=== PATIENT | male | born 1980 | race Caucasian/White ===

== ENCOUNTER 2021-01-06 20:56 | Inpatient (IN) ==
[2021-01-06] MEDS ORDERED: Dexamethasone Sodium Phos/PF 10 MG/ML VIAL IVP ONE (21:58)
[2021-01-06] MEDS ORDERED: Acetaminophen 325 MG TABLET PO ONE (22:01)
[2021-01-06] MEDS ORDERED: Ondansetron 4 MG/2 ML VIAL IVP ONE (22:08)
[2021-01-06 22:42] LABS: Basophils # 0.1 K/mcL (0.0-0.2); Basophils % 0.5 %; Eosinophils # 0.1 K/mcL (0.0-0.6); Eosinophils % 0.8 %; Hematocrit 44.8 % (37.5-50.1); Hemoglobin 14.6 g/dL (12.9-16.9); Immature Granulocytes % 0.9 % (0-4); Lymphocytes # 1.4 K/mcL (0.6-4.6); Lymphocytes % 12.8 %; Mean Corpuscular HGB Conc 32.6 g/dL (31.6-35.5); Mean Corpuscular Hemoglobin 29.2 pg (28.0-33.3); Mean Corpuscular Volume 89.6 fL (83.0-100.0); Mean Platelet Volume 9.6 fL (9.4-12.4); Monocytes # 0.8 K/mcL (0.0-1.3); Nucleated Red Blood Cells 0.2 /100 WBC (0); Platelet Count 394 K/mcL (140-400); Red Cell Distribution Width 13.1 % (11.5-14.5); White Blood Count 10.7 K/mcL (4.3-11.1)
[2021-01-06 22:45] LABS: Neutrophils # 8.4 K/mcL (1.6-8.9)
[2021-01-06 22:49] LABS: INR 1.5; Prothrombin Time 17.3 Seconds (9.4-12.1)
[2021-01-06 22:52] LABS: Activated Partial Thrombo Time 29.6 Seconds (26.0-36.0)
[2021-01-06] MEDS ORDERED: Isovue-370 500 ML BOTTLE IVP ONE (22:55)
[2021-01-06 22:57] LABS: VBG HCO3 27 mEq/L (21-27); VBG PCO2 40 mmHg (41-51); VBG PH 7.43 pH Units (7.32-7.42); VBG PO2 60 mmHg (25-50)
[2021-01-06 23:03] LABS: Platelet Estimate Normal (Normal); Reactive Lymphocytes Present (Not Present)
[2021-01-06 23:04] LABS: Alanine Aminotransferase 19 Units/L (7-52); Albumin 3.7 g/dL (3.5-5.7); Albumin/Globulin Ratio 0.8 (1.1-2.2); Alkaline Phosphatase 60 Units/L (34-104); Aspartate Amino Transferase 25 Units/L (13-39); BUN/Creatinine Ratio 17 (6-26); Bilirubin,Direct 0.3 mg/dL (0.0-0.2); Bilirubin,Indirect 0.6 mg/dL (0.0-1.0); Bilirubin,Total 0.9 mg/dL (0.3-1.0); Blood Urea Nitrogen 14 mg/dL (6-20); C-Reactive Protein 215 mg/L (Less than 10); Calcium 9.2 mg/dL (8.6-10.3); Carbon Dioxide 23 mEq/L (23-29); Chloride 98 mEq/L (98-107); Globulin 4.4 g/dL (2.4-3.5); Glucose 106 mg/dL (70-105); Magnesium 2.2 mg/dL (1.6-2.6); Osmolality,Calculated 281 (280-300); Phosphorous 2.7 mg/dL (2.7-4.5); Potassium 3.9 mEq/L (3.5-5.1); Sodium 135 mEq/L (136-145); Total Protein 8.1 g/dL (6.4-8.9); Troponin I < 0.03 ng/mL (< 0.04); eGFR For African Americans > 60 (> 60); eGFR For Non-African Americans > 60 (> 60)
[2021-01-06 23:06] LABS: Bacteria,Urine Few per hpf (None-Few); Bilirubin,Urine Small (Negative); Blood,Urine Trace (Negative); Clarity,Urine Clear (Clear); Color,Urine Yellow (Yellow); Glucose,Urine (UA) Normal (Normal); Granular Casts,Urine Few per lpf (None Seen); Hyaline Casts,Urine Few per lpf (None Seen); Ketones,Urine 80 mg/dL (Negative); Leukocyte Esterase,Urine Negative (Negative); Mucus,Urine Few per lpf (None-Few); Nitrite,Urine Negative (Negative); PH,Urine 6.5 pH Units (5.0-8.0); Protein,Urine 200 mg/dL (Neg-Trace); RBC,Urine 0-3 per hpf (0-3); Specific Gravity,Urine > 1.030 (1.010-1.025); Squamous Epithelial Cell,Urine Few per hpf (None-Few); Urobilinogen,Urine >=8.0 mg/dL (Normal)
[2021-01-07 00:23] LABS: Adenovirus Not Detected (Not Detect); Bordetella Pertussis Not Detected (Not Detect); Chlamydophila pneumoniae Not Detected (Not Detect); Coronavirus 229E Not Detected (Not Detect); Coronavirus HKU1 Not Detected (Not Detect); Coronavirus NL63 Not Detected (Not Detect); Coronavirus OC43 Not Detected (Not Detect); Human Metapneumovirus Not Detected (Not Detect); Human Rhinovirus/Enterovirus Not Detected (Not Detect); Influenza A Subtype 2009 H1 Not Detected (Not Detect); Influenza B Not Detected (Not Detect); Mycoplasma pneumoniae Not Detected (Not Detect); Parainfluenza Virus 1 Not Detected (Not Detect); Parainfluenza Virus 2 Not Detected (Not Detect); Parainfluenza Virus 3 Not Detected (Not Detect); Parainfluenza Virus 4 Not Detected (Not Detect); Respiratory Syncytial Virus Not Detected (Not Detect)
[2021-01-07 00:25] LABS: SARS-CoV-2 DETECTED (Not Detect)
[2021-01-07] MEDS ORDERED: Acetaminophen 325 MG TABLET PO PRN (02:32)
[2021-01-07] MEDS ORDERED: Ondansetron 4 MG/2 ML VIAL IVP PRN (02:32)
[2021-01-07] MEDS ORDERED: Naloxone 0.4 MG/ML INJ IVP PRN (02:32)
[2021-01-07 05:16] LABS: Eosinophils % 0.2 %
[2021-01-07 05:18] LABS: Basophils # 0.1 K/mcL (0.0-0.2); Basophils % 0.8 %; Hematocrit 43.8 % (37.5-50.1); Immature Granulocytes % 1.3 % (0-4); Immature Platelets 4.3 % (1.1-6.1); Lymphocytes # 0.9 K/mcL (0.6-4.6); Lymphocytes % 10.6 %; Mean Corpuscular Volume 90.9 fL (83.0-100.0); Mean Platelet Volume 9.7 fL (9.4-12.4); Monocytes # 0.4 K/mcL (0.0-1.3); Monocytes % 4.2 %; Platelet Count 415 K/mcL (140-400); Red Blood Count 4.82 M/mcL (4.19-5.50); Segmented Neutrophils % 82.9 %; White Blood Count 8.4 K/mcL (4.3-11.1)
[2021-01-07 05:33] LABS: Lactate Dehydrogenase 343 Units/L (140-271)
[2021-01-07 05:51] LABS: Ferritin 669 ng/mL (20-250)
[2021-01-07 05:56] LABS: Reactive Lymphocytes Present (Not Present)
[2021-01-07] MEDS: cefTRIAXone 1,000 MG in 0.9 % Sodium Chloride Mini Bag 100 ML IVPB SCH (09:03)
[2021-01-07] MEDS: Azithromycin 500 MG in 0.9 % Sodium Chloride 250 ML IVPB SCH (09:03)
[2021-01-07] MEDS: *HR* Rivaroxaban 10 MG TABLET PO SCH (16:36)
[2021-01-07] MEDS: NALOXONE HCL SL SCH (22:28)
[2021-01-07] MEDS: BUPRENORPHINE HCL SL SCH (22:28)
[2021-01-07] MEDS: Gabapentin 300 MG CAPSULE PO SCH (22:29)
[2021-01-07] MEDS: QUEtiapine Fumarate 100 MG TABLET PO SCH (22:29)
[2021-01-08] MEDS: Gabapentin 300 MG CAPSULE PO SCH ×3 (10:55→20:36)
[2021-01-08] MEDS: cefTRIAXone 1,000 MG in 0.9 % Sodium Chloride Mini Bag 100 ML IVPB SCH (10:55)
[2021-01-08] MEDS: BUPRENORPHINE HCL SL SCH ×2 (10:56→20:37)
[2021-01-08] MEDS: NALOXONE HCL SL SCH ×2 (10:56→20:37)
[2021-01-08] MEDS: Azithromycin 500 MG in 0.9 % Sodium Chloride 250 ML IVPB SCH (11:46)
[2021-01-08] MEDS: *HR* Rivaroxaban 10 MG TABLET PO SCH (16:19)
[2021-01-08] MEDS: *HR* Buprenorphine HCl 2 MG SUBLINGUAL TABLET SL SCH (20:36)
[2021-01-08] MEDS: QUEtiapine Fumarate 100 MG TABLET PO SCH (20:36)
[2021-01-09 06:29] LABS: Basophils % 0.4 %; Eosinophils % 0.1 %; Hematocrit 45.6 % (37.5-50.1); Hemoglobin 14.3 g/dL (12.9-16.9); Immature Granulocytes % 1.1 % (0-4); Lymphocytes # 1.6 K/mcL (0.6-4.6); Lymphocytes % 14.2 %; Mean Corpuscular HGB Conc 31.4 g/dL (31.6-35.5); Mean Corpuscular Hemoglobin 28.7 pg (28.0-33.3); Mean Corpuscular Volume 91.6 fL (83.0-100.0); Mean Platelet Volume 10.1 fL (9.4-12.4); Monocytes # 0.9 K/mcL (0.0-1.3); Monocytes % 8.3 %; Neutrophils # 8.7 K/mcL (1.6-8.9); Platelet Count 507 K/mcL (140-400); Red Blood Count 4.98 M/mcL (4.19-5.50); Red Cell Distribution Width 12.9 % (11.5-14.5); Segmented Neutrophils % 75.9 %; White Blood Count 11.4 K/mcL (4.3-11.1)
[2021-01-09 07:13] LABS: Alanine Aminotransferase 19 Units/L (7-52); Albumin 3.8 g/dL (3.5-5.7); Alkaline Phosphatase 51 Units/L (34-104); Aspartate Amino Transferase 18 Units/L (13-39); BUN/Creatinine Ratio 24 (6-26); Bilirubin,Total 0.6 mg/dL (0.3-1.0); Blood Urea Nitrogen 21 mg/dL (6-20); Calcium 9.4 mg/dL (8.6-10.3); Carbon Dioxide 26 mEq/L (23-29); Chloride 101 mEq/L (98-107); Ferritin 729 ng/mL (20-250); Globulin 3.8 g/dL (2.4-3.5); Glucose 115 mg/dL (70-105); Lactate Dehydrogenase 289 Units/L (140-271); Osmolality,Calculated 292 (280-300); Potassium 4.1 mEq/L (3.5-5.1); Sodium 139 mEq/L (136-145); Total Protein 7.6 g/dL (6.4-8.9); eGFR For African Americans > 60 (> 60); eGFR For Non-African Americans > 60 (> 60)
[2021-01-09] MEDS: cefTRIAXone 1,000 MG in 0.9 % Sodium Chloride Mini Bag 100 ML IVPB SCH (08:44)
[2021-01-09] MEDS: *HR* Buprenorphine HCl 2 MG SUBLINGUAL TABLET SL SCH ×2 (08:45→21:12)
[2021-01-09] MEDS: BUPRENORPHINE HCL SL SCH (08:45)
[2021-01-09] MEDS: Gabapentin 300 MG CAPSULE PO SCH ×3 (08:45→21:12)
[2021-01-09] MEDS: NALOXONE HCL SL SCH (08:45)
[2021-01-09] MEDS: Furosemide 20 MG TABLET PO SCH (08:45)
[2021-01-09] MEDS: Azithromycin 500 MG in 0.9 % Sodium Chloride 250 ML IVPB SCH (09:50)
[2021-01-09] MEDS: *HR* Rivaroxaban 10 MG TABLET PO SCH (17:04)
[2021-01-09] MEDS: QUEtiapine Fumarate 100 MG TABLET PO SCH (21:12)
[2021-01-10] MEDS: Gabapentin 300 MG CAPSULE PO SCH ×3 (09:29→20:28)
[2021-01-10] MEDS: Azithromycin 500 MG in 0.9 % Sodium Chloride 250 ML IVPB SCH (09:29)
[2021-01-10] MEDS: *HR* Buprenorphine HCl 2 MG SUBLINGUAL TABLET SL SCH ×2 (09:30→20:27)
[2021-01-10] MEDS: Furosemide 20 MG TABLET PO SCH (09:30)
[2021-01-10] MEDS: cefTRIAXone 1,000 MG in 0.9 % Sodium Chloride Mini Bag 100 ML IVPB SCH (09:30)
[2021-01-10 15:25] LABS: BUN/Creatinine Ratio 26 (6-26); Blood Urea Nitrogen 21 mg/dL (6-20); C-Reactive Protein 25 mg/L (Less than 10); Carbon Dioxide 19 mEq/L (23-29); Chloride 102 mEq/L (98-107); Glucose 170 mg/dL (70-105); Lactate Dehydrogenase 294 Units/L (140-271); Magnesium 2.2 mg/dL (1.6-2.6); Osmolality,Calculated 287 (280-300); Potassium 4.4 mEq/L (3.5-5.1); Sodium 135 mEq/L (136-145); eGFR For African Americans > 60 (> 60); eGFR For Non-African Americans > 60 (> 60)
[2021-01-10] MEDS: *HR* Rivaroxaban 10 MG TABLET PO SCH (17:25)
[2021-01-10] MEDS: QUEtiapine Fumarate 100 MG TABLET PO SCH (20:28)
[2021-01-10 22:54] LABS: Hematocrit 41.2 % (37.5-50.1); Hemoglobin 13.2 g/dL (12.9-16.9); Mean Corpuscular Hemoglobin 29.1 pg (28.0-33.3); Mean Corpuscular Volume 90.7 fL (83.0-100.0); Mean Platelet Volume 9.7 fL (9.4-12.4); Platelet Count 466 K/mcL (140-400); Red Blood Count 4.54 M/mcL (4.19-5.50); Red Cell Distribution Width 12.7 % (11.5-14.5); White Blood Count 8.8 K/mcL (4.3-11.1)
[2021-01-11] MEDS: Azithromycin 500 MG in 0.9 % Sodium Chloride 250 ML IVPB SCH (09:05)
[2021-01-11] MEDS: cefTRIAXone 1,000 MG in 0.9 % Sodium Chloride Mini Bag 100 ML IVPB SCH (09:06)
[2021-01-11] MEDS: Gabapentin 300 MG CAPSULE PO SCH ×3 (09:07→20:22)
[2021-01-11] MEDS: *HR* Buprenorphine HCl 2 MG SUBLINGUAL TABLET SL SCH ×2 (09:07→20:25)
[2021-01-11] MEDS: Furosemide 20 MG TABLET PO SCH (09:07)
[2021-01-11 09:26] LABS: Hemoglobin 14.4 g/dL (12.9-16.9); Mean Corpuscular Hemoglobin 29.5 pg (28.0-33.3); Mean Corpuscular Volume 92.2 fL (83.0-100.0); Mean Platelet Volume 10.1 fL (9.4-12.4); Platelet Count 500 K/mcL (140-400); Red Blood Count 4.88 M/mcL (4.19-5.50); Red Cell Distribution Width 12.9 % (11.5-14.5)
[2021-01-11 09:42] LABS: BUN/Creatinine Ratio 29 (6-26); Blood Urea Nitrogen 22 mg/dL (6-20); Calcium 9.4 mg/dL (8.6-10.3); Carbon Dioxide 25 mEq/L (23-29); Chloride 102 mEq/L (98-107); Glucose 88 mg/dL (70-105); Osmolality,Calculated 287 (280-300); Potassium 4.6 mEq/L (3.5-5.1); Sodium 137 mEq/L (136-145); eGFR For African Americans > 60 (> 60); eGFR For Non-African Americans > 60 (> 60)
[2021-01-11 09:59] LABS: Ferritin 591 ng/mL (20-250)
[2021-01-11 11:24] LABS: C-Reactive Protein 16 mg/L (Less than 10)
[2021-01-11] MEDS: *HR* Rivaroxaban 10 MG TABLET PO SCH (16:39)
[2021-01-11] MEDS: QUEtiapine Fumarate 100 MG TABLET PO SCH (20:24)
[2021-01-12 08:22] VITALS: BP 127/83; PULSE 61; TEMP 97.9; O2SAT 90
[2021-01-12] MEDS: Gabapentin 300 MG CAPSULE PO SCH ×2 (09:39→16:53)
[2021-01-12] MEDS: Furosemide 20 MG TABLET PO SCH (09:39)
[2021-01-12] MEDS: *HR* Buprenorphine HCl 2 MG SUBLINGUAL TABLET SL SCH (09:40)
[2021-01-12] MEDS: Azithromycin 500 MG in 0.9 % Sodium Chloride 250 ML IVPB SCH (09:40)
[2021-01-12] MEDS: cefTRIAXone 1,000 MG in 0.9 % Sodium Chloride Mini Bag 100 ML IVPB SCH (09:41)
[2021-01-12] MEDS: *HR* Rivaroxaban 10 MG TABLET PO SCH (16:53)
== END 2021-01-12 17:30 | disposition home or self-care (01) | DRG 871 ==
LOC: 3NENU 20:56 → EMEROOARM 20:56 → OBSVTOIN 01-07 01:40 → SUATTDRO 01-07 01:40 → 3NENU 01-07 03:12
PROVIDERS: ADMIT Family Medicine; ATTEND Internal Medicine